=== PATIENT | female | born 1945 | race Caucasian/White ===

== ENCOUNTER 2022-09-13 08:40 | Day surgery (SDC) | payer OTHER ==
[~2022-09-13] VITALS: Ht 152.4 cm; Wt 61.7 kg
[~2022-09-13 08:40] MED LIST: ceFAZolin SODIUM 2 GM in D5W 50 ML IV ONE
[2022-09-13] MEDS ORDERED: NS 1000 ML IV.SOLN IV ONE (11:45)
[2022-09-13] MEDS ORDERED: SUGAMMADEX SODIUM 200 MG/2 ML VIAL IV ONE (11:45)
[2022-09-13] MEDS ORDERED: PROPOFOL 200MG/ 20ML VIAL (DIPRIVAN) IV ONE (11:45)
[2022-09-13] MEDS ORDERED: LIDOCAINE/EPI 1% 1:100000 20 ML VIAL ONE (11:45)
[2022-09-13] MEDS ORDERED: fentaNYL CITRATE/PF 100 MCG/2 ML AMP ONE (11:45)
[2022-09-13] MEDS ORDERED: SEVOFLURANE 15 MIN GAS INH ONE (11:45)
[2022-09-13] MEDS ORDERED: ONDANSETRON HCL 4 MG/2 ML VIAL ONE (11:45)
[2022-09-13] MEDS ORDERED: ROCURONIUM BROMIDE 10 MG/ML (ZEMURON) ONE (11:45)
[2022-09-13] MEDS ORDERED: SUCCINYLCHOLINE CHLORIDE 20 MG/ML(QUELICIN) ONE (11:45)
[2022-09-13] MEDS ORDERED: DEXAMETHASONE SOD PHOSPHATE 4 MG/ML VIAL ONE (11:45)
[2022-09-13] MEDS ORDERED: MEPERIDINE 50 MG/ML VIAL ONE (11:45)
[2022-09-13] MEDS ORDERED: LR 1,000 ML IV.SOLN IV ONE (11:45)
[2022-09-13] MEDS ORDERED: ONDANSETRON HCL 4 MG/2 ML VIAL IVP PRN ×2 (13:30→14:00)
[2022-09-13] MEDS ORDERED: HYDROcodone/ACETAMIN 5-325 MG TAB (NORCO/ VICODIN) PO PRN (13:30)
[2022-09-13] MEDS ORDERED: OXYCODONE/ACETAMINOPHEN 5-325 TABLET PO PRN ×2 (13:30)
[2022-09-13] MEDS ORDERED: HYDR-3919 PO (13:34)
[2022-09-13] MEDS ORDERED: SIMETHICONE 80 MG TAB.CHEW PO ONE (13:45)
[2022-09-13] MEDS ORDERED: HYDROmorphone 1 MG/ML INJ. CARTRIDGE IVP PRN (14:00)
[2022-09-13] MEDS ORDERED: LR 1,000 ML IV SCH (14:00)
[2022-09-13] MEDS ORDERED: MEPERIDINE HCL/PF 25 MG/ML DISP.SYRIN IVP PRN (14:00)
[2022-09-13] MEDS ORDERED: METOCLOPRAMIDE HCL 10 MG/2 ML VIAL IVP PRN (14:00)
[2022-09-13 14:15] VITALS: O2SAT 97
[2022-09-13 16:09] VITALS: BP_SYST 128; PULSE 69; RESP 16
[2022-09-13] MEDS ORDERED: SIMETHICONE 80 MG TAB.CHEW PO SCH (17:00)
== END 2022-09-13 16:10 | disposition home or self-care (01) ==
LOC: SDS 08:40 → SMU 08:41 → SDS 16:10
PROVIDERS: ATTEND Specialist
DX: N83.201 Unspecified ovarian cyst, right side (principal); N83.202 Unspecified ovarian cyst, left side; Z78.0 Asymptomatic menopausal state; R10.2 Pelvic and perineal pain; D25.2 Subserosal leiomyoma of uterus; E78.00 Pure hypercholesterolemia, unspecified; Z79.899 Other long term (current) drug therapy
CPT/HCPCS: 87081; 58661; 88108; 88305; J3490; J1100; J2405; J2704; J0330; J3010; J2175; J7060; J7120; J7030; C1727